=== PATIENT | female | born 1995 | race African-American/Black ===

== ENCOUNTER 2017-08-15 07:24 | Emergency (ER) | payer OTHER ==
[~2017-08-15] VITALS: Ht 162.6 cm; Wt 72.6 kg
[~2017-08-15 07:24] MED LIST: CLOTRIMAZOLE15 GM TOPIC; DIFLUCAN150 MG PO; FERROUS SULFAT325 MG ORAL; IBUPROFEN600 MG ORAL; METRONIDAZOLE500 MG ORAL; NITROFURANTOIN100 M2 ORAL; NKM
[2017-08-15 07:27] VITALS: BP 123/65
--- NOTE | 2017-08-15 07:42 | Emergency Room Report ---
History of Present Illness General Chief Complaint: Female Urogenital Problems Source: Patient Present Illness HPI Patient is a 22-year-old female who presented after increased dysuria. Patient gradual onset of symptoms. Patient reports having some genital lesions which recur regularly near the timing with her periods. The patient states that she has previously been treated for bacterial vaginosis. She states that she has had intermittent episodes of burning with urination. She denies any hematuria. She is unsure if she is . Allergies: Coded Allergies: No Known Allergies (Unverified , 10/20/13) Patient History Last Menstrual Period: 07/29/17 Now: No : 0 Reviewed Nursing Documentation: PMH: Agreed; PSxH: Agreed Nursing Documentation-PMH Past Medical History: No Stated History Review of Systems All Other Systems: negative except mentioned in HPI Physical Exam Vital Signs Date Time Temp Pulse Resp B/P (MAP) Pulse Ox O2 Delivery O2 Flow Rate FiO2 08/15/17 07:27 98.3 78 18 123/65 96 Room Air 98.2 General Appearance: well appearing, no apparent distress, alert, GCS 15 Head: normocephalic, atraumatic ENT: hearing grossly normal, normal voice Neck: full range of motion, supple Respiratory: no respiratory distress, speaking full sentences Cardiovascular #1: normal inspection, regular rate, rhythm Gastrointestinal: normal bowel sounds, non tender, soft, no mass Genitourinary: normal inspection, ext genitalia/vag normal, os closed Musculoskeletal: normal inspection, no calf tenderness Neurologic: normal inspection, alert, oriented x3, responsive, internet architect III-XII nml as tested, normal gait Psychiatric: mood/affect normal Skin: no rash Medical Decision Making Diagnostic Impression: Primary Impression: Yeast infection ER Course Patient presented for dysuria. Differential diagnosis included was not limited to appendicitis, urinary tract infection, pelvic inflammatory disease, urethritis, herpes among others.The patient was noted to have what appears to be yeast infection. She was given Diflucan. She is given prescription for additional dose. The patient is advised follow-up with her primary care physician for STD testing. The patient is advised to follow up with primary care doctor in 1-2 days. Patient is advised to return if any worsening condition or if any changes in status that are concerning. This report is dictated with [employer] cloud developer software which may occasionally lead to discrepancies related to use of this software. Labs Test 08/15/17 07:50 Urine Color Pale yellow Urine Appearance Slightly cloudy Urine pH 8 (4.5-8.0) Urine Specific [place] 1.010 (1.005-1.035) Urine Protein Negative (NEGATIVE) Urine Glucose (UA) Negative (NEGATIVE) Urine Ketones Negative (NEGATIVE) Urine Occult Blood Negative (NEGATIVE) Urine Nitrite Negative (NEGATIVE) Urine Bilirubin Negative (NEGATIVE) Urine Urobilinogen Normal MG/DL (0.0-1.0) Urine Leukocyte Esterase 1+ (NEGATIVE) Urine RBC 0-2 /HPF (0 - 2) Urine WBC 2-4 /HPF (0 - 2) Urine Squamous Epithelial Cells Few /LPF (NONE/OCC) Urine Bacteria Few /HPF (NONE) Urine Mucus Few /LPF (NONE/OCC) Urine HCG, Qualitative Negative (NEGATIVE) Last Vital Signs Date Time Temp Pulse Resp B/P (MAP) Pulse Ox O2 Delivery O2 Flow Rate FiO2 08/15/17 07:27 98.3 78 18 123/65 96 Room Air 98.2 Status: improved Disposition: HOME, SELF-CARE Condition: Stable Scripts Fluconazole (FLUCONAZOLE) 150 Mg Tablet 150 MG ORAL DAILY, #1 TAB 0 Refills Prov: Tayo Holliday 08/15/17 Tayo Holliday August 15, 2017 07:42
[2017-08-15 08:11] LABS: BILIRUBIN, URINE NEGATIVE (NEGATIVE); COLOR,URINE PALE YELLOW; GLUCOSE, URINE (UA) NEGATIVE (NEGATIVE); KETONES,URINE NEGATIVE (NEGATIVE); LEUKOCYTE ESTERASE ,URINE 1+ (NEGATIVE); NITRITE,URINE NEGATIVE (NEGATIVE); PH,URINE 8 (4.5-8.0); PROTEIN,URINE NEGATIVE (NEGATIVE); UROBILINOGEN,URINE NORMAL MG/DL (0.0-1.0)
[2017-08-15 08:14] LABS: APPEARANCE,URINE SLIGHTLY CLOUDY
[2017-08-15] MEDS ORDERED: FLUCONAZOLE150 MG ORAL (08:18)
[2017-08-15] MEDS ORDERED: Fluconazole 100mg tab ORAL ONE (08:30)
[2017-08-15 08:40] VITALS: BP 116/73
== END 2017-08-15 08:40 | disposition home or self-care (01) ==
LOC: EMR 07:51
DX: B37.3 Candidiasis of vulva and vagina (principal)
CPT/HCPCS: 81003; 81025; 99283

== ENCOUNTER 2017-12-08 08:23 | Emergency (ER) | payer OTHER ==
[~2017-12-08] VITALS: Ht 162.6 cm; Wt 68.0 kg
[~2017-12-08 08:23] MED LIST changes: +FLUCONAZOLE150 MG ORAL
[2017-12-08 08:31] VITALS: BP 115/75
[2017-12-08 08:48] LABS: BILIRUBIN, URINE NEGATIVE (NEGATIVE); COLOR,URINE PALE YELLOW; GLUCOSE, URINE (UA) NEGATIVE (NEGATIVE); KETONES,URINE NEGATIVE (NEGATIVE); LEUKOCYTE ESTERASE ,URINE NEGATIVE (NEGATIVE); NITRITE,URINE NEGATIVE (NEGATIVE); PH,URINE 6.5 (4.5-8.0); PROTEIN,URINE NEGATIVE (NEGATIVE); UROBILINOGEN,URINE NORMAL MG/DL (0.0-1.0)
--- NOTE | 2017-12-08 08:49 | Emergency Room Report ---
History of Present Illness General Chief Complaint: Female Urogenital Problems Source: Patient Present Illness HPI Patient is a 22-year-old female presented after intermittent skin lesions her vaginal area and perineal area. These are not currently present. The patient reports having recurrent episodes near her menses where she begins having nonpainful rash to her vulvar area. Patient denies any fever. She denies any difficulty with urination she denies being . Allergies: Coded Allergies: No Known Allergies (Unverified , 10/20/13) Patient History Past Medical History: see triage record Last Menstrual Period: 11/22/17 Now: No Reviewed Nursing Documentation: PMH: Agreed; PSxH: Agreed Nursing Documentation-PMH Past Medical History: No Stated History Review of Systems All Other Systems: negative except mentioned in HPI Physical Exam Vital Signs Date Time Temp Pulse Resp B/P (MAP) Pulse Ox O2 Delivery O2 Flow Rate FiO2 12/08/17 08:26 98.3 74 18 115/75 98 Room Air 98.2 General Appearance: well appearing, no apparent distress, alert, GCS 15, non- toxic Head: normocephalic, atraumatic ENT: hearing grossly normal, normal voice Neck: full range of motion, supple Respiratory: no respiratory distress, speaking full sentences Gastrointestinal: normal inspection Genitourinary: normal inspection Musculoskeletal: normal inspection, back normal, digits/nails normal, no calf tenderness Neurologic: normal inspection, alert, oriented x3, normal gait Psychiatric: mood/affect normal Skin: no rash Medical Decision Making Diagnostic Impression: Primary Impression: Eczema ER Course Patient presented for skin rash. Differential diagnosis included was not limited to eczema, contact dermatitis, sunburn, lupus,pellagra among others. Patient has a benign exam and does not appear to require any further imaging or laboratory testing at this time. The patient is advised to follow up with primary care doctor. Patient is advised to return if any worsening condition or if any changes in status that are concerning. This report is dictated with [employer] research intern software which may occasionally lead to discrepancies related to use of this software. Last Vital Signs Date Time Temp Pulse Resp B/P (MAP) Pulse Ox O2 Delivery O2 Flow Rate FiO2 12/08/17 08:31 98.2 78 18 115/75 98 Room Air 98.2 Status: improved Disposition: HOME, SELF-CARE Condition: Stable Patient Instructions: Tayo Berger MD Dec 08, 2017 08:49
[2017-12-08 08:52] LABS: APPEARANCE,URINE CLEAR
[2017-12-08 08:58] VITALS: BP 115/75
== END 2017-12-08 08:58 | disposition home or self-care (01) ==
LOC: EMR 08:36
DX: L30.9 Dermatitis, unspecified (principal)
CPT/HCPCS: 81003; 81025; 99283

== ENCOUNTER 2018-06-24 14:12 | Emergency (ER) | payer OTHER ==
[~2018-06-24] VITALS: Ht 162.6 cm; Wt 68.0 kg
[2018-06-24 14:18] VITALS: BP 112/65
--- NOTE | 2018-06-24 14:57 | NUR ---
ED Nurse Note: PT WALKED IN TO ER TODAY FROM HOME. AOX4. PT C/O INTERMITTENT LOWER ABDOMINAL PAIN X 2 DAYS AGO. PT STATES PAIN IS CURRENTLY 5/10 BUT FLUCTUATES THROUGHOUT THE DAY. PT ALSO C/O FOUL VAGINAL ODOR X 2 DAYS. PT DENIES VAGINAL BLEEDING OR DISCHARGE. PT STATES SHE WAS TOLD SHE WAS , CONFIRMED BY BLOOD TEST, BUT WAS TOLD ON HER LAST APPT THAT HEART RATE COULD NOT BE FOUND. LMP: 2-12-19.
[2018-06-24 14:59] VITALS: BP 112/69
--- NOTE | 2018-06-24 15:10 | Emergency Room Report ---
History of Present Illness General Chief Complaint: Abdominal Pain Source: Patient Present Illness HPI This patient states that she found out she was about one week ago. She states this was confirmed at a clinic. She believes she is about 3 weeks based on her last menses. She states that she did undergo an ultrasound and lab work at [facility]. She was told that she could have an early versus an ectopic . She states that this was about a week ago. She states the past few days she has had suprapubic pain. She states the pain comes and goes. She denies dysuria or hematuria. She denies vaginal bleeding. However, she states she noted a foul odor to her vaginal discharge. She denies recent illness. She denies nausea or vomiting. She denies chest pain or shortness of breath. She has no other complaints. Allergies: Coded Allergies: No Known Allergies (Unverified , 10/20/13) Patient History Past Medical History: see triage record Social History: Denies: smoking, alcohol use, drug use Now: Yes - PT. UNSURE HOW FAR ALONG SHE IS : 1 Reviewed Nursing Documentation: PMH: Agreed; PSxH: Agreed Nursing Documentation-PMH Past Medical History: No Stated History Review of Systems All Other Systems: negative except mentioned in HPI Physical Exam Vital Signs Date Time Temp Pulse Resp B/P (MAP) Pulse Ox O2 Delivery O2 Flow Rate FiO2 06/24/18 14:18 98.6 96 17 112/65 97 Room Air Sp02 EP Interpretation: reviewed, normal General Appearance: no apparent distress, alert, GCS 15, non-toxic Head: normocephalic, atraumatic Eyes: bilateral eye normal inspection, bilateral eye PERRL ENT: hearing grossly normal, normal pharynx, no angioedema, normal voice Neck: full range of motion, supple/symm/no masses Respiratory: chest non-tender, lungs clear, normal breath sounds, no respiratory distress, no retraction, no accessory muscle use, speaking full sentences Cardiovascular #1: regular rate, rhythm, no edema Gastrointestinal: normal bowel sounds, soft, non-distended, no guarding, no rebound, tenderness - mild ttp supra-pubic region Rectal: deferred Musculoskeletal: back normal, gait/station normal, normal range of motion, non- tender Neurologic: alert, oriented x3, responsive, motor strength/tone normal, sensory intact, speech normal Psychiatric: judgement/insight normal, memory normal, mood/affect normal, no suicidal/homicidal ideation Skin: normal color, no rash, warm/dry, well hydrated Medical Decision Making Diagnostic Impression: Primary Impression: Threatened in first trimester ER Course This patient has an IUP. However, it is a small gestational sac without a yolk sac or pole. Given the hCG of 6000, I am concerned this could be an abnormal . However, there is no evidence of ectopic. I was able to obtain the patient's hCG from [facility] from a week ago and this number was 531. The hCG is rising appropriately. I did discuss this with the patient that she would need close follow-up to determine the viability of this . She was educated to obtain repeat ultrasound and repeat hCG in one week. There is no emergency medical condition identified. The patient is given close return precautions and follow-up instructions. Laboratory Tests Test 06/24/18 14:54 White Blood Count 4.5 K/UL (4.8-10.8) L Red Blood Count 3.45 M/UL (4.20-5.40) L Hemoglobin 9.7 G/DL (12.0-16.0) L Hematocrit 30.4 % (37.0-47.0) L Mean Corpuscular Volume 88 FL (80-99) Mean Corpuscular Hemoglobin 28.1 PG (27.0-31.0) Mean Corpuscular Hemoglobin Concent 32.0 G/DL (32.0-36.0) Red Cell Distribution Width 12.5 % (11.6-14.8) Platelet Count 207 K/UL (150-450) Mean Platelet Volume 7.8 FL (6.5-10.1) Neutrophils (%) (Auto) 40.7 % (45.0-75.0) L Lymphocytes (%) (Auto) 44.7 % (20.0-45.0) Monocytes (%) (Auto) 12.1 % (1.0-10.0) H Eosinophils (%) (Auto) 1.0 % (0.0-3.0) Basophils (%) (Auto) 1.5 % (0.0-2.0) Urine Color Yellow Urine Appearance Clear Urine pH 7 (4.5-8.0) Urine Specific [place] 1.010 (1.005-1.035) Urine Protein 1+ (NEGATIVE) H Urine Glucose (UA) Negative (NEGATIVE) Urine Ketones 1+ (NEGATIVE) H Urine Blood Negative (NEGATIVE) Urine Nitrite Negative (NEGATIVE) Urine Bilirubin Negative (NEGATIVE) Urine Urobilinogen 4 MG/DL (0.0-1.0) H Urine Leukocyte Esterase 1+ (NEGATIVE) H Urine RBC 0-2 /HPF (0 - 2) Urine WBC 2-4 /HPF (0 - 2) Urine Squamous Epithelial Cells Few /LPF (NONE/OCC) Urine Bacteria Few /HPF (NONE) Sodium Level 140 MMOL/L (136-145) Potassium Level 3.1 MMOL/L (3.5-5.1) L Chloride Level 104 MMOL/L (98-107) Carbon Dioxide Level 26 MMOL/L (21-32) Anion Gap 10 mmol/L (5-15) Blood Urea Nitrogen 10 mg/dL (7-18) Creatinine 0.7 MG/DL (0.55-1.30) Estimate Glomerular Filtration Rate > 60 mL/min (>60) Glucose Level 75 MG/DL (74-106) Calcium Level 8.8 MG/DL (8.5-10.1) Total Bilirubin 0.5 MG/DL (0.2-1.0) Aspartate Amino Transferase (AST) 13 U/L (15-37) L Alanine Aminotransferase (ALT) 18 U/L (12-78) Alkaline Phosphatase 38 U/L (46-116) L Total Protein 7.1 G/DL (6.4-8.2) Albumin 3.8 G/DL (3.4-5.0) Globulin 3.3 g/dL Albumin/Globulin Ratio 1.2 (1.0-2.7) Lipase 117 U/L (73-393) Human Chorionic Gonadotropin, Quant 6603 mIU/mL (1-6) H CT/MRI/US Diagnostic Results CT/MRI/US Diagnostic Results : Imaging Test Ordered: US pelvis, US abdomen Impression Abdomen ultrasound: Within normal limits. See official report. Pelvic ultrasound: Small intrauterine gestational sac, too small to date. The smaller than expected based on hCG. See official report in electronic medical record. Last Vital Signs Date Time Temp Pulse Resp B/P (MAP) Pulse Ox O2 Delivery O2 Flow Rate FiO2 06/24/18 14:59 98.5 85 21 112/69 100 Room Air Disposition: HOME, SELF-CARE Condition: Stable Brittany Archer DO Jun 24, 2018 15:10
--- NOTE | 2018-06-24 15:10 | NUR ---
ED Nurse Note: PT TO US VIA WHEELCHAIR
[2018-06-24 15:28] LABS: APPEARANCE,URINE CLEAR; BILIRUBIN, URINE NEGATIVE (NEGATIVE); GLUCOSE, URINE (UA) NEGATIVE (NEGATIVE); KETONES,URINE 1+ (NEGATIVE); LEUKOCYTE ESTERASE ,URINE 1+ (NEGATIVE); NITRITE,URINE NEGATIVE (NEGATIVE); PH,URINE 7 (4.5-8.0); PROTEIN,URINE 1+ (NEGATIVE); UROBILINOGEN,URINE 4 MG/DL (0.0-1.0)
[2018-06-24 15:29] LABS: COLOR,URINE YELLOW
[2018-06-24 15:31] LABS: BASOPHILS % (AUTO) 1.5 % (0.0-2.0); HEMATOCRIT 30.4 % (37.0-47.0); HEMOGLOBIN 9.7 G/DL (12.0-16.0); LYMPHOCYTES % (AUTO) 44.7 % (20.0-45.0); MEAN CORPUSCULAR VOLUME 88 FL (80-99); MONOCYTES % (AUTO) 12.1 % (1.0-10.0); NEUTROPHILS % (AUTO) 40.7 % (45.0-75.0); PLATELET COUNT 207 K/UL (150-450); RED BLOOD COUNT 3.45 M/UL (4.20-5.40); RED CELL DISTRIBUTION WIDTH 12.5 % (11.6-14.8); WHITE BLOOD COUNT 4.5 K/UL (4.8-10.8)
[2018-06-24 15:54] LABS: ANION GAP 10 mmol/L (5-15); BLOOD UREA NITROGEN 10 mg/dL (7-18); CALCIUM 8.8 MG/DL (8.5-10.1); CARBON DIOXIDE 26 MMOL/L (21-32); CHLORIDE 104 MMOL/L (98-107); CREATININE 0.7 MG/DL (0.55-1.30); POTASSIUM 3.1 MMOL/L (3.5-5.1); SODIUM 140 MMOL/L (136-145)
[2018-06-24 15:59] LABS: ALANINE AMINOTRANSFERASE 18 U/L (12-78); ALBUMIN 3.8 G/DL (3.4-5.0); ALBUMIN/GLOBULIN RATIO 1.2 (1.0-2.7); ALKALINE PHOSPHATASE 38 U/L (46-116); ASPARTATE AMINO TRANSFERASE 13 U/L (15-37); BILIRUBIN,TOTAL 0.5 MG/DL (0.2-1.0)
--- NOTE | 2018-06-24 16:25 | NUR ---
ED Nurse Note: PT BACK FROM US VIA WHEELCHAIR
--- NOTE | 2018-06-24 16:47 | Diagnostic Imaging Report ---
Indication: Pelvic pain, positive test Technique: One view of the chest Comparison: none Findings: Uterus measures 8.3 cm length by 2.5 cm AP. What appears to be a small 7 mm diameter gestational sac is seen within the upper endometrium. No yolk sac or heart activity demonstrated. Sac dimensions are too small to date. No evidence of subchorionic hemorrhage. No myometrial abnormality. There is small amount of free cul-de-sac fluid. The left ovary measures 3.7 cm in length. The right ovary measures 2.2 cm in length. Both ovaries demonstrate normal blood flow. No adnexal mass demonstrated Impression: Small intrauterine gestational sac, too small to date. No parts, heart activity, yolk sac demonstrated. Sac is smaller than expected based on beta-hCG level. While possibly a very early intrauterine , the possibility of demise should be considered. The possibility that this is also a pseudogestational sac of ectopic should also be considered, although this is deemed much less likely Negative for adnexal mass Small amount of free cul-de-sac fluid, most likely physiologic Findings discussed by phone with Dr. Sterling in the emergency room at the time of interpretation
--- NOTE | 2018-06-24 16:50 | Diagnostic Imaging Report ---
Indication: Abdominal pain Technique: Contreras-scale and duplex images of the upper abdomen were obtained. Doppler interrogation of the pancreatic vessels Comparison: none Findings: Gallbladder is unremarkable, without stones, wall thickening, nor pericholecystic fluid. Sonographic Knox's sign is negative. Common bile duct measures 3 mm in diameter. No intrahepatic biliary ductal dilatation. Liver demonstrates normal echogenicity, no focal abnormality. Portal vein and hepatic veins are patent. Pancreas is unremarkable. Spleen is unremarkable. Left kidney measures 11.7 cm in length. Right kidney measures 11.9 cm length. Both kidneys demonstrate normal echogenicity. There is no hydronephrosis. No focal abnormality . Non-aneurysmal abdominal aorta . Impression: Negative
[2018-06-24 16:59] VITALS: BP 114/72
[2018-06-24 17:30] VITALS: BP 116/78
--- NOTE | 2018-06-24 17:31 | NUR ---
ED Nurse Note: PT LAYING PEACEFULLY IN BED IN NAD. AOX4. DISCHARGE PAPERWORK EXPLAINED TO PT. PT VERBALIZES UNDERSTANDING AND ALL QUESTIONS ANSWERED. DISCHARGE PAPERWORK GIVEN TO PT, IV AND ID WRISTBAND REMOVED. PT WALKED OUT OF ER WITH STEADY GAIT AND ALL BELONGINGS.
== END 2018-06-24 17:31 | disposition home or self-care (01) ==
LOC: EMR 15:00
DX: O20.0 Threatened abortion (principal); Z3A.00 Weeks of gestation of pregnancy not specified
CPT/HCPCS: 36415; 76700; 76801; 76830; 80053; 81003; 83690; 84702; 85025; 96360; 99284